=== PATIENT | male | born 1950 | race Caucasian/White ===

== ENCOUNTER 2022-10-07 16:26 | Emergency (ER) | payer MEDICARE, BC ==
[2022-10-07] MEDS ORDERED: Benzonatate 100 MG Cap PO ONE (16:27)
[2022-10-07 17:25] LABS: CORONAVIRUS COVID-19 NAA NEGATIVE (NEGATIVE); RESPIRATORY SYNCYTIAL VIR NAA NEGATIVE (NEGATIVE)
[2022-10-07] MEDS ORDERED: Benzonatate 100 MG Cap ONE (20:47)
== END 2022-10-07 20:52 | disposition home or self-care (01) ==
LOC: MERGE 16:26 → DL.ED 16:26
DX: J10.1 Influenza due to other identified influenza virus with other respiratory manifestations (principal); I10 Essential (primary) hypertension; Z88.5 Allergy status to narcotic agent; Z88.8 Allergy status to other drugs, medicaments and biological substances; Z20.822 Contact with and (suspected) exposure to COVID-19
CPT/HCPCS: 0241U; 99283; A9270